=== PATIENT | female | born 1955 | race Caucasian/White ===

== ENCOUNTER 2017-03-16 10:13 | Emergency (ER) | payer OTHER ==
[~2017-03-16] VITALS: Ht 165.1 cm; Wt 85.3 kg
[~2017-03-16 10:13] MED LIST: ADVAIR; ALBU8HFA4; DIPH25CA83 PO; HYDR200T PO; LORA5SOL7 PO; LOSA25TA13 PO; LOVA40TA2 PO; METF10002 PO; SINGULAIR PO; ZYRTEC PO
--- NOTE | 2017-03-16 11:24 | NUR ---
Patient discharged to home in stable conditon. Written and verbal after care instructions given to patient. Patient verbalizes understanding of instructions. Pt instructed on proper use of crutches. Patient able to demonstrate correct use of crutches. Patient says that she hs her own crutches and walker at home.
== END 2017-03-16 11:25 | disposition home or self-care (01) ==
LOC: ER 10:13
DX: S82.892A Other fracture of left lower leg, initial encounter for closed fracture (principal); M19.90 Unspecified osteoarthritis, unspecified site; E11.9 Type 2 diabetes mellitus without complications; J45.909 Unspecified asthma, uncomplicated; Z96.653 Presence of artificial knee joint, bilateral; Z88.5 Allergy status to narcotic agent; Z91.040 Latex allergy status; W01.0XXA Fall on same level from slipping, tripping and stumbling without subsequent striking against object, initial encounter; Y93.89 Activity, other specified; Y92.89 Other specified places as the place of occurrence of the external cause; Y99.8 Other external cause status
CPT/HCPCS: 73610; 99284; A4663

== ENCOUNTER 2018-05-29 13:15 | Inpatient (IN) | payer OTHER ==
[~2018-05-29] VITALS: Ht 157.5 cm; Wt 85.3 kg
[~2018-05-29 13:15] MED LIST changes: -HYDR200T PO; +HYDR200T81 PO; -LOSA25TA13 PO; +LOSA25TA27 PO; +METF-442 PO; -METF10002 PO
--- NOTE | 2018-05-29 13:24 | NUR ---
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 PT IS HYPERTENSIVE. ER MD NOTIFIED. NO RESPIRATORY DISTRESS NOTED. PT REPORTS SHE SELF-ADMINISTERED 243 MG ASPIRIN AND TUMS CORPORATE LEGAL SECRETARY. PT DENIES SOB, N/V/D, DIZZINESS, HEADACHE.
[2018-05-29] MEDS ORDERED: HYDR200T81 PO (13:37)
[2018-05-29] MEDS ORDERED: MONT10TA22 PO (13:37)
[2018-05-29] MEDS ORDERED: LOSA50TA39 PO (13:38)
[2018-05-29] MEDS ORDERED: ATOR40TA PO (13:38)
[2018-05-29] MEDS ORDERED: CARV12.52 PO (13:38)
[2018-05-29] MEDS ORDERED: NITROGLYCERIN 0.4 MG/TAB BOTTLE SL ONE ×2 (13:45→13:50)
--- NOTE | 2018-05-29 13:50 | NUR ---
ALLERGY NOTE: Patient's record indicated allergy to ASPIRIN and NSAIDS. Patient indicated that these were added to her list of allergies when she had a rash with hives while taking a sulfonamide antibiotic along with NSAIDS. However, patient states she regularly takes aspirin with no reaction.
[2018-05-29 13:58] LABS: BASOPHILS % (AUTO) 0.7 % (0.0-2.0); EOSINOPHILS # (AUTO) 0.2 K/uL (0.0-0.7); EOSINOPHILS % (AUTO) 4.1 % (0.0-7.0); HEMATOCRIT 39.5 % (31.2-41.9); HEMOGLOBIN 12.9 g/dL (10.9-14.3); LYMPHOCYTES # (AUTO) 2.4 K/uL (20.0-40.0); LYMPHOCYTES % (AUTO) 40.2 % (20.5-51.5); MEAN CORPUSCULAR HEMOGLOBIN 27.6 uug (24.7-32.8); MEAN CORPUSCULAR HGB CONC 33 g/dL (32.3-35.6); MEAN CORPUSCULAR VOLUME 84.3 fL (75.5-95.3); MONOCYTES # (AUTO) 0.6 K/uL (2.0-10.0); MONOCYTES % (AUTO) 9.1 % (0.0-11.0); NEUTROPHILS # (AUTO) 2.8 K/uL (1.8-8.9); NEUTROPHILS % (AUTO) 45.9 % (38.5-71.5); PLATELET COUNT (AUTO) 232 K/uL (179-408); RED BLOOD CELL COUNT(AUTO) 4.69 MIL/uL (3.63-4.92); WHITE BLOOD COUNT (AUTO) 6.1 K/uL (3.8-11.8)
[2018-05-29 14:03] LABS: CREATININE 0.5 mg/dL (0.6-1.3)
[2018-05-29] MEDS ORDERED: NITROGLYCERIN OINT 1 GM PACKET TP ONE ×2 (14:06→14:15)
[2018-05-29 14:15] LABS: BILIRUBIN,DIRECT 0.1 mg/dL (0.0-0.2); BILIRUBIN,TOTAL 0.4 mg/dL (0.2-1.0); TOTAL PROTEIN, SERUM 7.2 g/dL (6.4-8.2)
--- NOTE | 2018-05-29 14:46 | NUR ---
ADMITTING REPORT GIVEN TO ZOILA DE LA CRUZ.
--- NOTE | 2018-05-29 15:10 | NUR ---
Pt. admitted to [facility], under care of Dr. CONDE. Belongs List completed
[2018-05-29] MEDS ORDERED: ONDANSETRON 4 MG/2 ML VIAL IV PRN (15:30)
[2018-05-29] MEDS ORDERED: ACETAMINOPHEN 325 MG TABLET PO PRN (15:30)
[2018-05-29] MEDS ORDERED: ZOLPIDEM 5 MG TABLET PO PRN (15:30)
[2018-05-29] MEDS ORDERED: ALBUTEROL SULFATE 2.5 MG/3 ML NEBU NEB PRN (15:30)
[2018-05-29 15:45] VITALS: BP 143/71
--- NOTE | 2018-05-29 15:50 | NUR ---
RECEIVED PATIENT FROM ER , PATIENT IN BED WITH IV ON LEFT AC WITH 22 GAUGE, PATIENT ALERT AND ORIENT ABLE TO ANSWER QUESTION, ADMITTED TO TELE, ALCOHOL AND DRUG COUNSELOR PLACE, VITAL SIGNS TAKEN, PROVIDE COMFORT AND SAFETY TO THE PATIENT, QUESTION AND CONCERNS ADDRESSED. WILL CONTINUE TO MONITOR AND CONTINUE TREATMENT PLAN.
[2018-05-29] MEDS: HYDROCODONE/APAP 5-325MG TABLET PO PRN (16:33)
[2018-05-29 17:00] VITALS: BP 159/72
--- NOTE | 2018-05-29 17:36 | NUR ---
PATIENT IN SITTING POSITION, EATING HER DINNER TOLERATED , NO C/O PAIN NOTED AT THIS TIME WITH OXYGEN VIA NASAL CANULA.
--- NOTE | 2018-05-29 18:35 | NUR ---
PATIENT LAYING IN BED COMFORTABLY, ALERT AND ORIENTED, NO SOB NOTED AT THIS TIME, NO C/O PAIN AT THIS TIME, PATIENT WATCHING TV AND SCROLLING WITH THE CHANNELS. ABLE TO MAKE NEEDS KNOWN. WILL CONTINUE PLAN OF CARE WITH FRONT DESK RECEPTIONIST.
--- NOTE | 2018-05-29 19:40 | NUR ---
PATIENT ALERT AND AWAKE ON BED. NO C/O OF PAIN OR ANY DISCOMFORT NOTE AT THIS TIME . WILL CONTINUE TO MONITOR .
[2018-05-29 20:38] VITALS: BP 113/58
[2018-05-30 00:39] VITALS: BP 136/64
[2018-05-30] MEDS: HYDROCODONE/APAP 5-325MG TABLET PO PRN (00:40)
[2018-05-30 05:12] VITALS: BP 146/55
[2018-05-30 06:43] LABS: BASOPHILS # (AUTO) 0.1 K/uL (0.0-8.0); BASOPHILS % (AUTO) 0.9 % (0.0-2.0); EOSINOPHILS # (AUTO) 0.3 K/uL (0.0-0.7); EOSINOPHILS % (AUTO) 3.4 % (0.0-7.0); HEMATOCRIT 37.3 % (31.2-41.9); HEMOGLOBIN 12.6 g/dL (10.9-14.3); LYMPHOCYTES # (AUTO) 2.5 K/uL (20.0-40.0); LYMPHOCYTES % (AUTO) 32.4 % (20.5-51.5); MEAN CORPUSCULAR HEMOGLOBIN 28.5 uug (24.7-32.8); MEAN CORPUSCULAR HGB CONC 34 g/dL (32.3-35.6); MEAN CORPUSCULAR VOLUME 84.6 fL (75.5-95.3); MONOCYTES # (AUTO) 0.5 K/uL (2.0-10.0); NEUTROPHILS # (AUTO) 4.4 K/uL (1.8-8.9); NEUTROPHILS % (AUTO) 56.3 % (38.5-71.5); PLATELET COUNT (AUTO) 210 K/uL (179-408); RED BLOOD CELL COUNT(AUTO) 4.41 MIL/uL (3.63-4.92); WHITE BLOOD COUNT (AUTO) 7.7 K/uL (3.8-11.8)
[2018-05-30 06:55] LABS: BILIRUBIN,TOTAL 0.4 mg/dL (0.2-1.0); CREATININE 0.6 mg/dL (0.6-1.3); MAGNESIUM 1.6 mg/dL (1.8-2.4); PHOSPHOROUS 4.9 mg/dL (2.5-4.9); POTASSIUM 3.6 mmol/L (3.5-5.1); TOTAL PROTEIN, SERUM 6.7 g/dL (6.4-8.2)
[2018-05-30] MEDS ORDERED: PANTOPRAZOLE SODIUM 40 MG TABLET.DR PO SCH (07:00)
--- NOTE | 2018-05-30 07:03 | NUR ---
PATIENT INTERMITTENTLY SLEEPING. PAIN MEDICATION ADMINISTERED ON C/O HEADACHE. NO CHEST PAIN NOTED . NO SOB. SINUS RHYTHM ON THE MONITOR.
[2018-05-30 08:23] LABS: THYROID STIMULATING HORMONE 4.284 mIU/mL (0.358-3.740)
[2018-05-30] MEDS ORDERED: FLUTICASONE/VILANTEROL 1 EACH BLST.W.DEV INH SCH (09:00)
[2018-05-30] MEDS ORDERED: ASPIRIN EC 81 MG TABLET.DR PO SCH (09:00)
[2018-05-30] MEDS ORDERED: Medication Not On Formulary EA (Metformin Hcl 1,000 MG) PO SCH (10:00)
[2018-05-30] MEDS ORDERED: MONTELUKAST SODIUM 10 MG TABLET PO SCH (10:00)
[2018-05-30] MEDS ORDERED: CARVEDILOL 12.5 MG TABLET PO SCH (10:00)
[2018-05-30] MEDS ORDERED: HYDROXYCHLOROQUINE SULFATE 200 MG TABLET PO SCH (10:00)
[2018-05-30] MEDS ORDERED: LOSARTAN POTASSIUM 50 MG TABLET PO SCH (10:00)
[2018-05-30] MEDS ORDERED: FLUT12AE3 IH (10:12)
[2018-05-30 11:21] VITALS: BP 156/62
[2018-05-30] MEDS ORDERED: MAGNESIUM OXIDE 400 MG TABLET PO ONE (11:30)
[2018-05-30] MEDS ORDERED: GLIP5TAB13 PO (11:38)
[2018-05-30] MEDS ORDERED: PANT40TA2 PO (11:38)
[2018-05-30] MEDS ORDERED: ASPI-618 PO (11:38)
--- NOTE | 2018-05-30 13:10 | NUR ---
DISCHARGE NOTED, PROTOCOL FOLLOWED. IV REMOVED WITH NO REDNESS OR IRRITATION NOTED. ALL BELONGINGS ACCOUNTED FOR AND SENT HOME WITH PATIENT. PATIENT LEFT AMBULATORY IN PRIVATE CAR.
[2018-05-30] MEDS ORDERED: METFORMIN HCL 500 MG TABLET PO SCH (18:00)
[2018-05-30] MEDS ORDERED: LORATADINE 10 MG TABLET PO SCH (21:00)
[2018-05-30] MEDS ORDERED: ATORVASTATIN 40 MG TABLET PO SCH (21:00)
== END 2018-05-30 13:00 | disposition home or self-care (01) | DRG 392 ==
LOC: ER 13:15 → TELE3 14:58
PROVIDERS: ADMIT Internal Medicine; ATTEND Internal Medicine
DX: K22.4 Dyskinesia of esophagus (principal); K21.9 Gastro-esophageal reflux disease without esophagitis; Z96.653 Presence of artificial knee joint, bilateral; Z79.84 Long term (current) use of oral hypoglycemic drugs; Z79.899 Other long term (current) drug therapy; E66.9 Obesity, unspecified; Z68.34 Body mass index [BMI] 34.0-34.9, adult; J45.909 Unspecified asthma, uncomplicated; E83.41 Hypermagnesemia; E11.65 Type 2 diabetes mellitus with hyperglycemia; I10 Essential (primary) hypertension
CPT/HCPCS: 36415; 70030-TC; 71045; 83735; 84100; 84443; 85025; 85730; 93005; A4663; G0378

== ENCOUNTER 2018-06-27 08:31 | Emergency (ER) | payer OTHER ==
[~2018-06-27] VITALS: Ht 157.5 cm; Wt 81.6 kg
[~2018-06-27 08:31] MED LIST changes: -ADVAIR; +ASPI-618 PO; +CARV12.52 PO; -DIPH25CA83 PO; +FLUT12AE3 IH; +GLIP5TAB13 PO; -LOSA25TA27 PO; +LOSA50TA39 PO; -LOVA40TA2 PO; +MONT10TA22 PO; +PANT40TA2 PO; -SINGULAIR PO; -ZYRTEC PO
--- NOTE | 2018-06-27 08:48 | NUR ---
Pt. BIB by wheelchair accompanied by friend for R ankle injury that occured last night, pt. states she fell while coming down the stairs, denies LOC, did not hit head, lateral aspec of R ankle is swollen, c/o 8/10 pain, LE CMS intact bilat., 2cm superficial ovalish abrasion on R knee noted, pt. reports taken 500mg tylenol earlier today, A/Ox4, RR even and unlabored, speaks in clear and complete sentences, bed in low position, all needs met,
--- NOTE | 2018-06-27 09:02 | NUR ---
Rad. tech. at bedside for DEE bland
--- NOTE | 2018-06-27 09:50 | NUR ---
Patient discharged to home in stable conditon. Written and verbal after care instructions given. Patient verbalizes understanding of instructions. Pt. d/c w/ prescription per MD order, d/c paper signed, all belongings w/ pt., ID band removed, taken off unit via wheelchair accompanied by female survey compiler, instructed not to drive, NAD
== END 2018-06-27 09:52 | disposition home or self-care (01) ==
LOC: ER 08:31
DX: S82.831A Other fracture of upper and lower end of right fibula, initial encounter for closed fracture (principal); S50.311A Abrasion of right elbow, initial encounter; J45.909 Unspecified asthma, uncomplicated; E11.9 Type 2 diabetes mellitus without complications; Z91.040 Latex allergy status; Z88.8 Allergy status to other drugs, medicaments and biological substances; Z79.899 Other long term (current) drug therapy; Z79.82 Long term (current) use of aspirin; Y93.89 Activity, other specified; Y92.89 Other specified places as the place of occurrence of the external cause; Y99.8 Other external cause status
CPT/HCPCS: 73610; A4663

== ENCOUNTER 2021-06-22 04:39 | Emergency (ER) | payer OTHER ==
[~2021-06-22] VITALS: Ht 160 cm; Wt 81.6 kg
--- NOTE | 2021-06-22 04:45 | NUR ---
Came in ambulatory c/o swelling of the tongue and difficulty swallowing. To room 1B. Patient AAO, denies SOB but claims the swelling is getting worse and she's drooling. Seen and evaluated by Dr. Mixon.
--- NOTE | 2021-06-22 04:48 | NUR ---
Swallow eval done; able to take po fluids well.
[2021-06-22] MEDS ORDERED: methylPREDNISolone SOD SUCC 125 MG/2 ML VIAL IV ONE (05:00)
[2021-06-22] MEDS ORDERED: diphenhydrAMINE 50 MG/1 ML VIAL IV ONE (05:00)
[2021-06-22] MEDS ORDERED: FAMOTIDINE. 20 MG/2 ML VIAL IV ONE ×2 (05:00→05:09)
[2021-06-22] MEDS ORDERED: EPINEPHRINE 1 MG/1 ML AMP SQ ONE (05:00)
[2021-06-22] MEDS ORDERED: diphenhydrAMINE 50 MG/1 ML VIAL ONE (05:08)
[2021-06-22] MEDS ORDERED: methylPREDNISolone SOD SUCC 125 MG/2 ML VIAL ONE (05:08)
[2021-06-22] MEDS ORDERED: EPINEPHRINE 1 MG/1 ML AMP ONE (05:08)
[2021-06-22 05:15] LABS: HEMATOCRIT 39.2 % (31.2-41.9); MEAN CORPUSCULAR HEMOGLOBIN 25.4 uug (24.7-32.8); MEAN CORPUSCULAR VOLUME 78.7 fL (75.5-95.3); PLATELET COUNT (AUTO) 248 K/uL (179-408)
--- NOTE | 2021-06-22 05:15 | NUR ---
IV medications given. Patient states she feels anxious; reassured appropriately.
[2021-06-22 05:22] LABS: CREATININE 0.7 mg/dL (0.6-1.3); POTASSIUM 4.5 mmol/L (3.5-5.1)
[2021-06-22] MEDS ORDERED: FAMO-132 PO (05:37)
[2021-06-22] MEDS ORDERED: PRED20TA PO (05:37)
--- NOTE | 2021-06-22 05:45 | NUR ---
Feeling better now. VS stable.
--- NOTE | 2021-06-22 06:00 | NUR ---
Patient discharged to home in stable condition. Written and verbal after care instructions given. Patient verbalizes understanding of instructions. Stressed follow up or return to ER for worsening s/s.
[2021-06-22 06:01] VITALS: BP 130/72
== END 2021-06-22 06:00 | disposition home or self-care (01) ==
LOC: ER 04:40
DX: T78.3XXA Angioneurotic edema, initial encounter (principal); Z96.653 Presence of artificial knee joint, bilateral; J45.909 Unspecified asthma, uncomplicated; E11.9 Type 2 diabetes mellitus without complications; I10 Essential (primary) hypertension; Z79.84 Long term (current) use of oral hypoglycemic drugs; Z79.899 Other long term (current) drug therapy
CPT/HCPCS: 36415; 80048; 85025; 96372; 96374; 96375; 99284; J0171; J1200; J2930; J3490; A4663

== ENCOUNTER 2022-07-21 02:26 | Emergency (ER) | payer MEDICARE, BC ==
[~2022-07-21] VITALS: Ht 160 cm; Wt 81.6 kg
[~2022-07-21 02:26] MED LIST changes: +FAMO-132 PO; +PRED20TA PO
[2022-07-21] MEDS ORDERED: ACETAMINOPHEN 325 MG TABLET PO ONE (03:00)
[2022-07-21] MEDS ORDERED: ACETAMINOPHEN 325 MG TABLET ONE (03:18)
--- NOTE | 2022-07-21 03:39 | NUR ---
Patient taken down for CT.
--- NOTE | 2022-07-21 06:00 | NUR ---
Patient sleeping. Visible chest rises. NAD noted.
--- NOTE | 2022-07-21 07:05 | NUR ---
Report given to DOROTHY Hadley.
--- NOTE | 2022-07-21 07:44 | NUR ---
Patient discharged to home in stable condition. Written and verbal after care instructions given. Patient verbalizes understanding of instructions. Stressed follow up or return to ER for worsening s/s. Pt walked out of ER w/ steady gait.
[2022-07-21 07:45] VITALS: BP 107/69
== END 2022-07-21 07:46 | disposition home or self-care (01) ==
LOC: ER 02:33
DX: S06.0X0A Concussion without loss of consciousness, initial encounter (principal); J45.909 Unspecified asthma, uncomplicated; Z88.8 Allergy status to other drugs, medicaments and biological substances; Z91.040 Latex allergy status; Z79.82 Long term (current) use of aspirin; Z79.899 Other long term (current) drug therapy; W01.0XXA Fall on same level from slipping, tripping and stumbling without subsequent striking against object, initial encounter; Y93.89 Activity, other specified; Y92.89 Other specified places as the place of occurrence of the external cause; Y99.8 Other external cause status
CPT/HCPCS: 70450; A4663

== ENCOUNTER 2023-06-17 10:59 | Emergency (ER) | payer MEDICARE, BC ==
[~2023-06-17] VITALS: Ht 157.5 cm; Wt 75.7 kg
[2023-06-17] MEDS ORDERED: EMPA25TA PO (11:15)
[2023-06-17] MEDS ORDERED: predniSONE 50 MG TABLET ONE (11:41)
[2023-06-17] MEDS ORDERED: predniSONE 10 MG TABLET ONE (11:41)
[2023-06-17] MEDS: predniSONE 10 MG TABLET PO ONE (11:51)
[2023-06-17 11:52] LABS: BASOPHILS # (AUTO) 0.1 K/UL (0.0-0.2); BASOPHILS % (AUTO) 1.2 % (0.0-2.0); DIFFERENTIAL COMMENT 1; EOSINOPHILS # (AUTO) 0.4 K/uL (0.0-0.7); EOSINOPHILS % (AUTO) 6.3 % (0.0-7.0); HEMOGLOBIN 13.1 g/dL (10.9-14.3); LYMPHOCYTES # (AUTO) 1.6 K/uL (0.8-4.8); LYMPHOCYTES % (AUTO) 24.2 % (20.5-51.5); MEAN CORPUSCULAR HEMOGLOBIN 26.4 uug (24.7-32.8); MEAN CORPUSCULAR HGB CONC 33 g/dL (32.3-35.6); MEAN CORPUSCULAR VOLUME 80.6 fL (75.5-95.3); MONOCYTES # (AUTO) 0.6 K/uL (0.1-1.30); MONOCYTES % (AUTO) 8.3 % (0.0-11.0); PLATELET COUNT (AUTO) 217 K/uL (179-408); RED BLOOD CELL COUNT(AUTO) 4.96 MIL/uL (3.63-4.92); RED CELL DISTRIBUTION WIDTH 15.7 % (12.3-17.7); WHITE BLOOD COUNT (AUTO) 6.7 K/uL (3.8-11.8)
[2023-06-17 12:00] LABS: CALCIUM 9.1 mg/dL (8.5-10.1); CREATININE 0.6 mg/dL (0.6-1.3); POTASSIUM 4.1 mmol/L (3.5-5.1)
[2023-06-17] MEDS ORDERED: ALBUTEROL SULFATE 2.5 MG/3 ML NEBU ONE ×2 (12:08→12:09)
[2023-06-17] MEDS ORDERED: IPRATROPIUM BROMIDE 0.5 MG/2.5 ML NEBU ONE (12:08)
[2023-06-17] MEDS: ALBUTEROL SULFATE 2.5 MG/3 ML NEBU NEB ONE (12:12)
[2023-06-17] MEDS: IPRATROPIUM BROMIDE 0.5 MG/2.5 ML NEBU NEB ONE (12:12)
[2023-06-17 12:30] VITALS: O2SAT 98
[2023-06-17 12:40] VITALS: O2SAT 98
[2023-06-17] MEDS ORDERED: ALBU6.7H9 INH (14:40)
[2023-06-17] MEDS ORDERED: FLUT1DIS28 INH (14:40)
[2023-06-17] MEDS ORDERED: FLAS1EAC2 MC (14:40)
[2023-06-17] MEDS ORDERED: FLAS1EAC2 TP (14:40)
[2023-06-17] MEDS ORDERED: PRED50TA PO (14:40)
[2023-06-17 14:57] VITALS: BP 131/69; O2SAT 98
== END 2023-06-17 14:59 | disposition home or self-care (01) ==
LOC: ER 10:59
DX: J45.909 Unspecified asthma, uncomplicated (principal); E11.9 Type 2 diabetes mellitus without complications; E83.42 Hypomagnesemia; Z98.890 Other specified postprocedural states; Z79.82 Long term (current) use of aspirin; Z79.899 Other long term (current) drug therapy; Z60.2 Problems related to living alone; Z88.1 Allergy status to other antibiotic agents
CPT/HCPCS: 99284; 71045; 80048; 83735; 85025; 36415; 94640; J7512 ×2; A4606; A4663; J3590